=== PATIENT | female | born 2005 | race Caucasian/White ===

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

== ENCOUNTER 2025-01-24 10:30 | Outpatient (RCR) | payer OTHER, SELFPAY ==
--- NOTE | 2024-12-19 16:22 | HP.PTEVAL_ITS ---
Patient's Visit Information Visit Information Visit Information: SID GTZ is a 19 year old F referred to Physical Therapy by OSIRIS Pham with a diagnosis of Hypermobility. Date of Evaluation: 12/19/24 Physical Therapist: Elda Wilkes DPT Visit Plan Frequency: 2x /Week Duration: 4 Weeks Plan: 1x a week pool 1x a week land Comprehensive HEP including gym and bands for scapular, core, UE and LE strength/stabilization and proprioception for hypermobility. Subjective Subjective: Patient reports that she was diagnosed with EDS and has lots of issues with hips, knees and ankles. She has a twin sisters who has issues with sliding knee caps- she has more issues with popping hips. She does not do a lot of sports due to the risk of injury. She has no current injuries but when she does it takes her a long time to heal. No pain currently. They are doing genetic testing for connective tissue disorders but they just suggested PT/OT. She did PT for her right wrist for tendonitis. She is normally pretty active she likes to be hike and be outside. She likes to fence and be outside. She is looking for an indep HEP- she is going to [employer] for 7 months next year ([employer]) she goes to [employer] and goes back Jan 27. They have a weight room and a pool. PMHx: EDS, POTS, MCASS Meds: spirolactone Objective Objective: Posture: forward head, rounded shoulders- can correct with verbal cues Gait: no deviation noted HR/TR: able SLS: 30 sec with moderate pes planus ROM: hypermobile Strength: Core: fair minus, Scap: fair minus, Hip: 4/5 throughout, Knee: 4+/5, Ankle: 5/5, Shoulder: 4/5, Elbow: 4+/5, Wrist: 5/5, Buyer Grain: good Balance/Special Test Scores Lower Extremity Functional Score: 68 Goals Goal 1:: Patient will be I with HEP and progression Goal Time Frame: 6-8 Weeks Rehabilitation Potential Physical Therapy Diagnosis: Patient has decreased scapular and core strength/stabilization, UE and LE strength/stabilization Anticipated Interventions Patient/Client Instruction: Educate patient on: Benefits of Fitness Program Therapeutic Exercise to Include: Strength training, Endurance training, Balance training, Coordination, Agility training, Body mechanics, Postural training, Flexibilty training, Gait and locomotor training, Neuromotor development, In an aquatic setting, Dynamic Lumbar Stabilization and Scapular Strength/Stabilization Text: Thank you for the opportunity to evaluate your patient. For Medicare and Medicare HMO plans, please review the plan of care and approve it. It will need to be FAXED BACK to us at [phone] for Medicare purposes. For Medicare only, by signing this I certify the plan of care. Please let me know if there are questions or concerns regarding this plan of care. Physician Signature: Date:
--- NOTE | 2025-01-24 11:58 | HP.PTDCSUM_ITS ---
Discharge Summary D/C summary: It has been my pleasure to treat SID GTZ referred by Graciela Oliva NP- C, with the diagnosis of Hypermobility for a total of 8 visit(s). Discharge Date: 01/24/25 Please see the following information for a summary of their discharge status. Subjective Subjective: Pt. reports overall doing much better. Pt. is I with all gym and pool exercises. She has axcess this these at school as well. pt. is going to college soon. Pain KHALIL: Pain Intensity (Out of 10): 0 B HIPS: Pain Intensity (Out of 10): 0 B KNEES: Pain Intensity (Out of 10): 0 Overall Improvement % Improvement: 90 Objective Objective/Function: Pt. is overall doing well. She is now I with HEP for pool and land. She is going to take these exercises and work on them at school. Pt. has no questions and will be DC from PT at this point in time. Goals Goal 1:: Patient will be I with HEP and progression Goal Progress: Goal Met Plan Plan: 1x a week pool 1x a week land Comprehensive HEP including gym and bands for scapular, core, UE and LE strength/stabilization and proprioception for hypermobility. D/C Information d/c sentence: If there are questions or concerns regarding this patient's physical therapy, please feel free to call me at [phone]. Thank you for the referral of this patient. Sincerely, Robi Camarena, DPT Balance/Gait/Functional tests Balance/Special Test Scores Lower Extremity Functional Score: 75 Improvement % Improvement: 90
== END 2025-01-24 19:00 | disposition home or self-care (01) ==
LOC: PT 10:30
PROVIDERS: PCP Nurse Practitioner Family; Referring Provider Registered Nurse; Visit Provider Registered Nurse
DX: M24.9 Joint derangement, unspecified (principal)
CPT/HCPCS: 97110; 97113; 97162; 97530